=== PATIENT | female | born 2000 | race Caucasian/White ===

== ENCOUNTER 2021-09-07 00:30 | Emergency (ER) | payer OTHER ==
[~2021-09-07] VITALS: Ht 157.5 cm; Wt 52.2 kg
[2021-09-07 00:47] VITALS: BP 118/89
== END 2021-09-07 00:59 | disposition home or self-care (01) ==
LOC: MED 00:30
DX: F41.9 Anxiety disorder, unspecified (principal)
CPT/HCPCS: 99281